=== PATIENT | female | born 1980 | race Hispanic/Latino ===

== ENCOUNTER 2017-04-11 11:31 | Inpatient (IN) | payer BC ==
[2017-04-08 11:44] VITALS: BMI 27.4
[2017-04-11 12:32] LABS: BASO % 0.4 % (0.0-2.0); EOS # 0.1 K/uL (0.0-0.7); EOS % 0.5 % (0.0-4.0); HEMOGLOBIN 13.2 g/dL (12.0-16.0); LYMPH # 1.6 K/uL (1.0-4.3); LYMPH % 16.2 % (20.0-40.0); MEAN CELL VOLUME 90.9 fl (81.0-99.0); MEAN CORPUSCULAR HEMOGLOBIN 30.5 pg (27.0-31.0); MEAN CORPUSCULAR HGB CONC 33.6 g/dL (33.0-37.0); MEAN PLATELET VOLUME 8.4 fl (7.2-11.7); MONO # 0.8 K/uL (0.0-0.8); MONO % 8.1 % (0.0-10.0); NEUT # 7.2 K/uL (1.8-7.0); NEUT % 74.8 % (50.0-75.0); NRBC % 0.1 % (0.0-0.0); RBC 4.33 Mil/uL (3.80-5.20); RED CELL DISTRIBUTION WIDTH 12.8 % (11.5-14.5); WHITE BLOOD COUNT 9.6 K/uL (4.8-10.8)
[2017-04-11] MEDS ORDERED: Lactated Ringer's 1,000 ML IV ONE ×4 (14:39→20:45)
[2017-04-11] MEDS ORDERED: Bupivacaine 0.5% Inj(30mL) ONE (14:52)
[2017-04-11] MEDS ORDERED: ePHEDrine 50 mg/ml Inj ONE (15:05)
[2017-04-11] MEDS ORDERED: Propofol 10 mg/ml Inj (20 ML) ONE (15:05)
[2017-04-11] MEDS ORDERED: Midazolam 2 MG/2 ML VIAL ONE (15:05)
[2017-04-11] MEDS ORDERED: Rocuronium 10 mg/ml (5 ml) ONE ×2 (15:06→16:16)
[2017-04-11] MEDS ORDERED: Succinylcholine 200 mg/10 ml Inj IV ONE (15:18)
[2017-04-11] MEDS ORDERED: Dexamethasone 4 mg/1 ml ONE (16:01)
[2017-04-11] MEDS ORDERED: Lidocaine 2% MPF (5 ml) Inj ONE (19:04)
[2017-04-11] MEDS ORDERED: Oxycodone/Acetaminophen 5/325 mg Tab PO PRN (19:20)
[2017-04-11] MEDS ORDERED: Lactated Ringer's 1,000 ML IV SCH (19:30)
[2017-04-11] MEDS ORDERED: HYDROmorphone 0.5 mg/0.5 ml ISec IVP PRN (19:31)
[2017-04-11] MEDS: Oxycodone/Acetaminophen 5/325 mg Tab PO PRN (22:49)
[2017-04-12 08:37] VITALS: BP 126/76; PULSE 82
[2017-04-12] MEDS: Oxycodone/Acetaminophen 5/325 mg Tab PO PRN (11:03)
[2017-04-12 15:32] VITALS: RESP 18; TEMP 98.4; O2SAT 99
--- NOTE | 2017-04-15 10:44 | PCM.OP ---
Operative Report - Operative Report Date of Surgery/Procedure: 04/11/17 Time of Surgery/Procedure: 14:00 Surgeon: Dr. Henok Alcazar Bottom Loader: Dr. Martin Moon Anesthesia/Sedation: general/Dr. Sellers Pre-Operative Diagnosis: endometriosis and abdomihnal pain Post-Operative Diagnosis: endometriosis extensively involving the rectum, sigmoid colon and appendix Indication for Surgery: as above Operative Findings: Extensive endometriosis of the sigmpid colon, rectum and appendix Procedure/Operation Description: 1-appendectomy. 2-multiple excsiosns of sigmoid colon and [place]-rectal endometriosis (times 5). 3-colorrhaphy distal colon/rectum. Brief History: This is a 37 year old woman already brought to the operating room by Dr. Moon when he noted mul;tiple areas of endometriosis involving the sigmoid colon, rectum and appendix. Intraoperative geneeral surgrry consultation was requested. Description of the procedure: Dr. Moon had already initiated the robotic operation (separate dictation Dr. Moon). After taking contol of the robotic console the sigmoid colon and rectum were examined and 5 separate clusters of distict and separate lesions were noticed. Initiating with the most proximal, using sharp and blunt dissection with the aid of electrocautery the first lesion was incided circumferentially and dissected from the colon wall. The lesion involving the sigmoid colo wall was excided en-bloc, marked and sent to pathology as a separate specimen. Another second lesion on the sigm,oid colon was was excised in a similar manner and snet to pathology separately. The third lesion, on the descending colon was excided similarly and sent as a separate specimen to pathology. Our attention turned distally to the rectum and a fourth lesion waas disscted en-bloc and snet to pathology separately. The fifth lesion was excidsed with similar technique, however, it was deeper and required dissection to the level of the muscularis layer. This lesion was marked and sent separately to pathology as well. The area of the most distal (fifth lesion) was examined and a colorrhaphy was performed to close this portion of the rectum with multiple interrupted 3-0 vicryl sutures. All the areas were examined and hemostasis was deemed adequate. The appendix was retracted anteriorly and the mesentery was desicated with electrocautery with particular attention to the appendiceal artery, then dissected to base. This was looped with 3-0 PDS sutures. It was transected and sent to pathology. The operation was then turned over to Dr. Moon (separate dictation Dr. Moon). Estimated Blood Loss: 200 cc Complications: none Discharge & Condition: stable
--- NOTE | 2017-04-17 08:34 | OP ---
PROCEDURE DATE: 04/11/2017 PREOPERATIVE DIAGNOSES: Pelvic pain, bladder pain, bladder mass, dyspareunia, dysmenorrhea, and a very large right ovarian cyst 12 cm in size. POSTOPERATIVE DIAGNOSES: Pelvic pain, bladder pain, bladder mass, dyspareunia, dysmenorrhea, and a very large right ovarian cyst 12 cm in size. Extensive pelvic endometriosis stage IV involving the bladder, right ovary, colon, sigmoid rectum and appendix. SURGEON: Martin Moon MD DOCUMENT REVIEW SPECIALIST: Henok Alcazar MD. PROCEDURES PERFORMED: Cystoscopy with bilateral ureteral catheterization, hysteroscopy, robotic Davinci laparoscopy, right ovarian cystectomy of cyst greater 12 cm, bilateral ureterolysis; excision of endometriosis; excision anterior bladder mass, and to be dictated separately by Dr. Alcazar. It is going to be excision of rectal and colorectal endometriosis and appendectomy, he will dictate this part separately. SPECIMENS: Sent are bladder nodular ligament, nodule anterior uterine mass, right ovarian cyst, perirectal endometriosis, posterior cervical endometriosis, anterior rectal endometriosis, left iliac vein endometriosis, descending colon endometriosis, sigmoid colon endometriosis, sigmoid endometriosis, sigmoid wall endometriosis, left pelvic side wall endometriosis, right pelvic side wall endometriosis, appendix and right ovarian cyst. COMPLICATIONS: None. ESTIMATED BLOOD LOSS: Minimal. INDICATION FOR THE PROCEDURE: The patient had a prior surgery with confirmed endometriosis and ovarian cystectomy since the surgery approximately 2 years prior the patient had persisted severe abdominal pain and evaluation revealed presence of a very large abdominal mass, which started from the pelvis, but extended all the way into the abdomen and the findings were suggestive and consistent with a endometrioma. She also had a mass impinging on the bladder also suggestive with endometrioma, the mass was about 3 cm in size. Prior to the surgery, the patient was counseled with regards to the risks and benefits of the procedure including, but not limited disease recurrence, vesicovaginal fistulas, bladder injury and ureteral injury as well as bowel injury and rectal fistula. The patient signed the consent and verbalized an understanding of the risks and benefits of the procedure and was taken to the OR. DESCRIPTION OF PROCEDURE: After adequate anesthesia was obtained, the patient was placed in the dorsal lithotomy position. She was prepped and draped ant then the surgeon gowned and gloved. A time-out was taken according to the hospital protocol and the patient was padded extensively in all areas prone to pressure. Also extreme care was placed in hyperextending and hyperflexing her joints. At this point, attention was in the vaginal area where under direct visualization, a cystoscope was inserted into the bladder. The cystoscopy was essential due to the fact that there was bladder mass and also given to extensiveness of the condition, it was absolutely essential to be able to visualize the ureter, therefore bilateral ureteral cannulization was performed. An open ended 5 Malaysian catheter was placed into the left ureter all the way to the distal ureter and 5 mL of IC-Green was injected and the catheter was then retracted. Again, the attention was on the right ureter where also an open-ended catheter was inserted all the way to the distal ureter and the catheter was then retracted after injecting 5 mL of IC-Green. At this point, a Avila was placed into the bladder. Attention was in the vaginal area, where speculum was placed in the vagina, the anterior lip of the cervix was grasped. The cervix was dilated and hysteroscopy was performed, really no evidence of impingement masses or any other abnormalities in the uterine cavity. At this point, uterine manipulator was placed in the uterus and attention was on the abdomen. A open laparoscopy was performed according to open laparoscopy standards and the peritoneum was entered in blunt fashion. At this point, the pelvis was examined, there was a massive right ovarian mass that extended all the way from the pelvis up to the abdomen. This was about to be an endometrioma about 12 cm in size. The cul-de-sac was obliterated and the anterior segment of the bladder was also obliterated and there was evidence of endometriosis all over the pelvis including on the colon and sigmoid. The liver and the diaphragm appeared to be free of disease. At this point, additional ports were inserted on the direct visualization of the left upper quadrant, left mid quadrant and right upper quadrant. At this point, the cyst was drained by placing a hole into the cyst and draining it . We limited to a minimum spillage of endometriosis black liquid. The cyst was very fragile and the under side of it leaked a little bit, but also this was also aspirated. After the cyst was aspirated, extensive lavage was performed to aspirate all other areas. At this point, the right cyst was elevated, a fragment of the cyst was cut and the rest of the endometrioma was peeled off. Once the right cyst was elevated, the attention was on the anterior bladder. The bladder and anterior part of the uterus were blocked and obliterated. A full dissection was performed excising the bladder mass anteriorly obtaining bladder peritoneum without entering the muscularis of the bladder. This inflammatory mass was sent to pathology. It was about 3 cm x 2 cm in size. At this point, an additional area of endometriosis was identified by round ligament., which was elevated without cutting the ligament itself, the large are of invasive endometriosis was also excised. At this point, attention was on the right hand side, where after identifying ureter utilizing florescent technology, a ureterolysis was performed similarly by opening the peritoneum and lateralizing the ureter, while keeping invasive endometriosis medial . Attention was on the left hand side where the similar procedure was performed, where the peritoneum was entered and with great care to avoid injuring the ureter, the peritoneum was dissected off. At this point, two large area of invasive endometriosis were excised both on the left pelvic side wall with a very wide excision and the right side pelvic wall. Dr. Alcazar from the General Surgery was called in and he took down the colon, which was firmly adherent to the posterior aspect of the uterus. He will dictate this part separately. Once the colon was dissected off, the posterior aspect of the uterus and the cul-de-sac was opened, additional areas of highly invasive endometriosis were dissected off. At this point, attention was on the right ovarian fossa where most of the disease was and again an area of fibrotic deep invasive endometriosis was also dissected with extreme care to avoid ureter and uterine vessels. Given the massive size of the cyst most of the endometriosis was removed was removed from the right ovary and a great amount of ovarian tissue was left intact in perfect condition. Both fallopian tubes, although slightly edematous appeared to be in adequate condition, so they were not removed given the patient desires to preserve her future fertility. At this point, she was checked for hemostasis that appeared to be excellent and the pelvis was extensively irrigated. Also multiple liters of fluid were used to irrigate the pelvis in the upper abdomen to remove any potential remnant of endometriotic fluid. Dr. Guy then proceeded with excising some nodules on the rectum and the sigmoid as well as the appendix, he will dictate this part separately. At the end of the procedure, again we checked for hemostasis and appeared to be excellent, the [employer] robot was undocked. The abdomen was desufflated. The samples have been removed and having placed in an endo bag and removed through the abdominal incision . At this point, the incision was closed utilizing 0 PDS for the fascia and 4-0 Monocryl for the skin. At the end of the procedure, all tapes and instrument counts were correct. Martin Moon MD MTDD
== END 2017-04-12 15:00 | disposition home or self-care (01) | DRG 743 ==
LOC: H.OPSURG 11:31 → H.PEDS 19:22
PROVIDERS: ADMIT Obstetrics & Gynecology Reproductive Endocrinology; ATTEND Obstetrics & Gynecology Reproductive Endocrinology
PROC: 0TBB4ZX Excision of Bladder, Percutaneous Endoscopic Approach, Diagnostic (ICD-10-PCS; 2017-04-11)
PROC: 0DTJ4ZZ Resection of Appendix, Percutaneous Endoscopic Approach (ICD-10-PCS; 2017-04-11)
PROC: 0DBN4ZZ Excision of Sigmoid Colon, Percutaneous Endoscopic Approach (ICD-10-PCS; 2017-04-11)
PROC: 8E0W4CZ Robotic Assisted Procedure of Trunk Region, Percutaneous Endoscopic Approach (ICD-10-PCS; 2017-04-11)
PROC: 0UB04ZZ Excision of Right Ovary, Percutaneous Endoscopic Approach (ICD-10-PCS; principal; 2017-04-11 13:30)
PROC: 0UBC4ZZ Excision of Cervix, Percutaneous Endoscopic Approach (ICD-10-PCS; 2017-04-11 13:30)
PROC: 0TN74ZZ Release Left Ureter, Percutaneous Endoscopic Approach (ICD-10-PCS; 2017-04-11 13:30)
PROC: 0TN64ZZ Release Right Ureter, Percutaneous Endoscopic Approach (ICD-10-PCS; 2017-04-11 13:30)
DX: N80.3 Endometriosis of pelvic peritoneum (principal); N32.89 Other specified disorders of bladder; N80.1 Endometriosis of ovary; N80.5 Endometriosis of intestine; N83.11 Corpus luteum cyst of right ovary; N94.10 Unspecified dyspareunia; N94.6 Dysmenorrhea, unspecified; Z88.0 Allergy status to penicillin; Z88.2 Allergy status to sulfonamides

== ENCOUNTER 2017-08-22 10:57 | Day surgery (SDC) | payer BC ==
[2017-04-08 11:44] VITALS: BMI 27.4
[2017-08-22] MEDS ORDERED: Lactated Ringer's 1,000 ML IV ONE ×2 (12:00→15:05)
[2017-08-22] MEDS ORDERED: Dexamethasone 4 mg/1 ml ONE (12:08)
[2017-08-22] MEDS ORDERED: Lidocaine 1% 5ml Abboject IV ONE (12:08)
[2017-08-22] MEDS ORDERED: Propofol 10 mg/ml Inj (20 ML) ONE (12:08)
[2017-08-22] MEDS ORDERED: Midazolam 2 MG/2 ML VIAL ONE (12:08)
[2017-08-22] MEDS ORDERED: Lidocaine 2% Jelly (5 ml) TOP ONE (12:08)
[2017-08-22] MEDS ORDERED: Lidocaine 2% MPF (5 ml) Inj ONE (12:14)
[2017-08-22] MEDS ORDERED: Silver Nitrate Topical - Stick ONE (12:14)
[2017-08-22] MEDS ORDERED: Clindamycin 600mg/50ml NS 600 MG/50 ML BAG IVPB ONE (12:15)
[2017-08-22 12:23] LABS: HEMOGLOBIN 12.8 g/dL (12.0-16.0); MEAN CELL VOLUME 92.5 fl (81.0-99.0); MEAN CORPUSCULAR HGB CONC 34.6 g/dL (33.0-37.0); RBC 3.99 Mil/uL (3.80-5.20); RED CELL DISTRIBUTION WIDTH 12.9 % (11.5-14.5); WHITE BLOOD COUNT 8.9 K/uL (4.8-10.8)
[2017-08-22 12:27] VITALS: RESP 18
[2017-08-22] MEDS ORDERED: Lactated Ringer's 1,000 ML IV SCH (13:45)
[2017-08-22 15:38] VITALS: TEMP 97.5
[2017-08-22 17:35] VITALS: BP 119/73; PULSE 84; O2SAT 96
--- NOTE | 2017-09-10 18:00 | OP ---
PROCEDURE DATE: 08/22/2017 SURGEON: Martin Moon MD. PREOPERATIVE DIAGNOSES: Pelvic pain, abdominal uterine bleeding, uterine septum. PROCEDURE PERFORMED: Operative hysteroscopy, uterine metroplasty and excision of uterine septum. ESTIMATED BLOOD LOSS: Minimal. ANESTHESIA: General endotracheal. ANESTHESIOLOGIST: Edmundo Chisholm MD. COMPLICATIONS: None. DESCRIPTION OF PROCEDURE: After adequate anesthesia was obtained, the patient was placed in the dorsal lithotomy position. She was prepped and draped. The surgeon was gowned and gloved. A time-out was taken according to the hospital policy. At this point, after emptying the bladder, a speculum was placed in the vagina. The anterior lip of the cervix was grasped. The cervix was dilated and the operative hysteroscope was inserted into the uterine cavity. A large uterine septum was immediately noticed. Utilizing hysteroscopic scissor, a sequential progressive dissection was performed, progressively i excised the septum in a [id number] basis. I alternated the scissors with the monopolar tip progressively cutting and coagulating small vessels if there was any bleeding. The distending media was Sorbitol. Track was kept throughout the process of strict in and outs to calculate the negative balance of the distending media. The dissection was complete and less than 0.5 cm of septum appeared to left and the cavity opened up beautifully. At this point, it was checked for hemostasis, appeared to be excellent. The positive fluid balance was 700 of Sorbitol. The instruments were removed. The cervix and the uterus were hemostatic. At the end of the procedure, all tips and instrument counts were correct. The patient was awoken up and taken to recovery room in excellent condition. Martin Moon MD [facility]ITALRoe[facility]t
== END 2017-08-22 17:40 | disposition home or self-care (01) ==
LOC: H.OPSURG 10:57
PROVIDERS: ATTEND Obstetrics & Gynecology Reproductive Endocrinology
DX: Q51.2 Other doubling of uterus (principal); N93.9 Abnormal uterine and vaginal bleeding, unspecified; R10.2 Pelvic and perineal pain
CPT/HCPCS: 36415; 58560; 85027; 86850; 86900; J1100; J1885; J2250; J2704; J2765; J3010; J7120